=== PATIENT | male | born 1970 | race African-American/Black ===

== ENCOUNTER 2020-10-13 22:31 | Emergency (ER) | payer MEDICAID ==
[~2020-10-13] VITALS: Ht 188 cm; Wt 118.0 kg
[2020-10-13 22:34] VITALS: BP 126/70
[2020-10-13] MEDS ORDERED: HYDROCODONE/ACETAMINOPHEN 5/325MG TABLET PO ONE (23:45)
[2020-10-14 01:38] LABS: BASOPHILS % 0.4 % (0.0-2.0); EOSINOPHILS % 1.6 % (0.0-5.0); HEMATOCRIT. 41.7 % (42.0-52.0); HEMOGLOBIN. 13.4 g/dL (14.0-18.0); LYMPHOCYTES % 11.2 % (20.0-50.0); MEAN CORPUSCULAR HEMOGLOBIN 23.2 pg (28.0-32.0); MEAN CORPUSCULAR VOLUME 72.5 fL (80.0-94.0); MEAN PLATELET VOLUME 8.9 fl (7.4-10.4); MONOCYTES % 5.7 % (2.0-8.0); NEUTROPHILS % 81.1 % (40.0-76.0); PLATELET 244 x1000/uL (130-400); RED BLOOD CELL COUNT 5.75 mill/uL (4.7-6.1); RED CELL DISTRIBUTION WIDTH 21.6 % (11.6-14.6)
[2020-10-14 01:43] LABS: CHLORIDE 108 mEq/L (98-107)
[2020-10-14] MEDS ORDERED: IOHEXOL-350 100 ML BOTTLE ONE (02:20)
== END 2020-10-14 06:51 | disposition home or self-care (01) ==
LOC: ER 22:31
DX: S80.01XA Contusion of right knee, initial encounter (principal); S80.02XA Contusion of left knee, initial encounter; S80.11XA Contusion of right lower leg, initial encounter; Y07.04 Female partner, perpetrator of maltreatment and neglect; Y03.0XXA Assault by being hit or run over by motor vehicle, initial encounter; Y93.89 Activity, other specified; Y92.488 Other paved roadways as the place of occurrence of the external cause
CPT/HCPCS: 36415; 73562; 73590; 73706; 80048; 85025; 99285; Q9967

== ENCOUNTER 2020-10-25 15:35 | Emergency (ER) | payer MEDICAID ==
[~2020-10-25] VITALS: Ht 185.4 cm; Wt 137.0 kg
[2020-10-25] MEDS ORDERED: HYDROCODONE/ACETAMINOPHEN 5/325MG TABLET PO ONE (16:15)
[2020-10-25 16:18] VITALS: BP 140/78
== END 2020-10-25 16:19 | disposition home or self-care (01) ==
LOC: ER 15:35
DX: Z76.0 Encounter for issue of repeat prescription (principal); M25.562 Pain in left knee
CPT/HCPCS: 99283

== ENCOUNTER 2024-09-28 05:39 | Emergency (ER) | payer OTHER ==
[~2024-09-28] VITALS: Ht 185.4 cm; Wt 150.0 kg
[~2024-09-28 05:39] MED LIST: CYCL25PO15 MT; GABA-1180 PO; LOSA1TAB40 PO; OXYC-105 PO
[2024-09-28 05:46] VITALS: O2SAT 97
[2024-09-28] MEDS: KETOROLAC 30MG/ML VIAL IM ONE (06:30)
[2024-09-28] MEDS ORDERED: IBUP-2029 MT (06:42)
[2024-09-28] MEDS ORDERED: AMOX1TAB16 MT (06:42)
[2024-09-28] MEDS ORDERED: METH-653 MT (06:42)
[2024-09-28 07:40] VITALS: BP 125/71; PULSE 78; RESP 18; TEMP 36.94740; O2SAT 97
== END 2024-09-28 07:41 | disposition home or self-care (01) ==
LOC: ER 05:39
DX: S33.5XXA Sprain of ligaments of lumbar spine, initial encounter (principal); K04.7 Periapical abscess without sinus; K02.9 Dental caries, unspecified; Z79.899 Other long term (current) drug therapy; Z88.5 Allergy status to narcotic agent; Z98.890 Other specified postprocedural states; X58.XXXA Exposure to other specified factors, initial encounter; Y93.89 Activity, other specified; Y92.89 Other specified places as the place of occurrence of the external cause; Y99.8 Other external cause status
CPT/HCPCS: 99283; 96372; J1885